=== PATIENT | male | born 1985 | race African-American/Black ===

== ENCOUNTER 2021-01-15 20:59 | Inpatient (IN) ==
[2021-01-16] MEDS ORDERED: SODIUM CHLORIDE 0.9% 1,000 ML IV STA (00:08)
[2021-01-16 00:26] LABS: Albumin 2.9 G/DL (3.4-5.0); Calcium 9.1 MG/DL (8.5-10.1); Osmolality,Calculated 259.7 MOS/KG (273-304); Potassium 4.4 MMOL/L (3.5-5.1); Total Protein 9.4 G/DL (6.4-8.2)
[2021-01-16 00:49] LABS: Basophils % 0.4 % (0.0-0.8); Eosinophils # 0.4 10*3/uL (0.0-0.87); Eosinophils % 3.9 % (0.00-10.9); Hematocrit 35.9 VOL% (42.0-52.0); Hemoglobin 11.7 GM/DL (14.0-18.0); Immature Granulocytes % 0.5 %; Immature Granulocytes Absolute 0.05 #; Lymphocytes # 1.8 10*3/uL (1.4-4.0); Lymphocytes % 17.5 % (21.2-54.2); Mean Corpuscular HGB Conc 32.6 GM/DL (32-36); Mean Platelet Volume 9.5 FL (9.6-12.0); Monocytes % 10.8 % (1.7-12.7); Neutrophils % 66.9 % (38.7-73.9); Platelet Count 310 T/CUMM (130-400); Red Blood Count 3.74 MC/CUMM (3.8-5.5); White Blood Count 10.3 T/CUMM (4-12)
[2021-01-16 00:51] LABS: Bacteria,Urine Occasional /HPF (Few); Bilirubin,Urine Negative (Negative); Blood, Urine Small mg/dL (Negative); Glucose,Urine (UA) Negative (Negative); Ketones,Urine 20 mg/dL (Negative); Mucus,Urine Many /LPF (Occasional); Nitrite,Urine Negative (Negative); Protein,Urine 100 MG/DL; RBC,Urine 4 /HPF (0-4); Urine Appearance Slightly Hazy (Clear); Urine Color Amber (Yellow); Urine Specific Gravity 1.034 (1.001-1.035); Urine Urobilinogen < 2.0 EU/DL (0.2-1.0)
[2021-01-16] MEDS ORDERED: GLUCAGON 1 MG VIAL IM PRN (03:39)
[2021-01-16] MEDS ORDERED: DEXTROSE 50% 25 GM/50 ML VIAL IV PRN (03:39)
[2021-01-16] MEDS ORDERED: ONDANSETRON 4 MG/2 ML VIAL IV PRN (03:39)
[2021-01-16 06:46] LABS: PT Patient Result 11.7 SECS (10.5-12.0)
[2021-01-16] MEDS ORDERED: EMTRICITABINE TENOFOVIR ALAFEN PO SCH (09:00)
[2021-01-16 14:16] LABS: RBC,Peritoneal Fluid 7917 T/CUMM
[2021-01-16] MEDS ORDERED: METOPROLOL TARTRATE 5 MG/5 ML VIAL IV ONE (15:58)
[2021-01-16] MEDS: ACETAMINOPHEN 325 MG TABLET PO PRN (16:12)
[2021-01-17 05:29] LABS: AFP Tumor < 2.2 NG/ML (0-8); Cancer Antigen 19-9 1.84 U/ML (0-35); Carcinoembryonic Antigen < 0.50 NG/ML (0.0-5.0)
[2021-01-17] MEDS: cefTRIAXone 1,000 MG in SODIUM CHLORIDE 0.9% 100 ML IV SCH (12:55)
[2021-01-17] MEDS ORDERED: ALBUMIN 25% 50 GM/200 ML VIAL IV ONE ×2 (14:03→14:07)
[2021-01-18 06:09] LABS: Basophils % 0.3 % (0.0-0.8); Eosinophils # 0.4 10*3/uL (0.0-0.87); Eosinophils % 6.4 % (0.00-10.9); Hematocrit 33.1 VOL% (42.0-52.0); Immature Granulocytes % 0.5 %; Immature Granulocytes Absolute 0.03 #; Lymphocytes % 15.6 % (21.2-54.2); Mean Corpuscular HGB Conc 33.2 GM/DL (32-36); Mean Corpuscular Volume 95.9 FL (87-102); Mean Platelet Volume 8.6 FL (9.6-12.0); Monocytes % 11.9 % (1.7-12.7); Neutrophils % 65.3 % (38.7-73.9); Platelet Count 290 T/CUMM (130-400); Red Blood Count 3.45 MC/CUMM (3.8-5.5); Red Cell Distribution Width 11.9 % (9.3-17.3); White Blood Count 6.3 T/CUMM (4-12)
[2021-01-18 06:28] LABS: Calcium 8.7 MG/DL (8.5-10.1); Osmolality,Calculated 263.4 MOS/KG (273-304); Potassium 3.8 MMOL/L (3.5-5.1)
[2021-01-18] MEDS: BISACODYL 5 MG TABLET PO SCH ×2 (11:00→16:05)
[2021-01-18] MEDS: cefTRIAXone 1,000 MG in SODIUM CHLORIDE 0.9% 100 ML IV SCH (11:45)
[2021-01-18 16:15] LABS: % CD4 (T Cells) 20 % (32-64); % CD8 (T Cells) 36 % (15-40); 4/8 Ratio 0.6 (>=0.9)
[2021-01-18] MEDS ORDERED: POLYETHYLENE GLYCOL POWDER 255 GM BOTTLE PO ONE (18:00)
[2021-01-18] MEDS ORDERED: MAGNESIUM CITRATE 300 ML BOTTLE PO ONE (21:00)
[2021-01-19] MEDS: BISACODYL 5 MG TABLET PO SCH (00:04)
[2021-01-19 06:26] LABS: Basophils % 0.7 % (0.0-0.8); Eosinophils # 0.4 10*3/uL (0.0-0.87); Eosinophils % 7.5 % (0.00-10.9); Hematocrit 36.8 VOL% (42.0-52.0); Immature Granulocytes % 0.2 %; Immature Granulocytes Absolute 0.01 #; Lymphocytes % 16.6 % (21.2-54.2); Mean Corpuscular HGB Conc 32.6 GM/DL (32-36); Mean Corpuscular Volume 97.1 FL (87-102); Mean Platelet Volume 8.9 FL (9.6-12.0); Monocytes % 11.5 % (1.7-12.7); Neutrophils % 63.5 % (38.7-73.9); Platelet Count 341 T/CUMM (130-400); Red Blood Count 3.79 MC/CUMM (3.8-5.5); Red Cell Distribution Width 11.9 % (9.3-17.3); White Blood Count 5.9 T/CUMM (4-12)
[2021-01-19 06:50] LABS: Calcium 9.1 MG/DL (8.5-10.1); Osmolality,Calculated 259.5 MOS/KG (273-304); Potassium 3.9 MMOL/L (3.5-5.1)
[2021-01-19] MEDS: cefTRIAXone 1,000 MG in SODIUM CHLORIDE 0.9% 100 ML IV SCH (12:20)
[2021-01-19] MEDS ORDERED: POTASSIUM CHLORIDE 20 MEQ TABLET PO PRN (13:26)
[2021-01-19] MEDS: LACTATED RINGERS 1,000 ML IV SCH (13:35)
[2021-01-19] MEDS ORDERED: LIDOCAINE 2% 5 ML VIAL ONE (15:31)
[2021-01-19] MEDS ORDERED: propofoL 200 MG/20 ML VIAL IV ONE ×2 (15:31→17:30)
[2021-01-20 04:20] LABS: Basophils % 0.6 % (0.0-0.8); Eosinophils # 0.4 10*3/uL (0.0-0.87); Eosinophils % 6.4 % (0.00-10.9); Hematocrit 37.1 VOL% (42.0-52.0); Hemoglobin 11.9 GM/DL (14.0-18.0); Immature Granulocytes % 0.3 %; Immature Granulocytes Absolute 0.02 #; Lymphocytes # 1.1 10*3/uL (1.4-4.0); Lymphocytes % 17.2 % (21.2-54.2); Mean Corpuscular HGB Conc 32.1 GM/DL (32-36); Mean Corpuscular Volume 95.9 FL (87-102); Mean Platelet Volume 8.8 FL (9.6-12.0); Neutrophils % 65.5 % (38.7-73.9); Platelet Count 330 T/CUMM (130-400); Red Blood Count 3.87 MC/CUMM (3.8-5.5); Red Cell Distribution Width 11.7 % (9.3-17.3); White Blood Count 6.4 T/CUMM (4-12)
[2021-01-20 04:32] LABS: Uric Acid 7.2 MG/DL (3.5-7.2)
[2021-01-20 04:35] LABS: Albumin 2.6 G/DL (3.4-5.0); Bilirubin,Total 1.2 MG/DL (0.20-1.00); Calcium 8.9 MG/DL (8.5-10.1); Osmolality,Calculated 265.4 MOS/KG (273-304); Total Protein 8.4 G/DL (6.4-8.2)
[2021-01-20] MEDS: LACTATED RINGERS 1,000 ML IV SCH (08:27)
[2021-01-20] MEDS ORDERED: RASBURICASE 7.5 MG in SODIUM CHLORIDE 0.9% 50 ML IV ONE (09:02)
[2021-01-20] MEDS: allopurinoL 300 MG TABLET PO SCH (09:49)
[2021-01-20] MEDS: cefTRIAXone 1,000 MG in SODIUM CHLORIDE 0.9% 100 ML IV SCH (12:17)
[2021-01-20 13:39] LABS: Syphilis Total Antibody w/Rflx Reactive
[2021-01-21 06:21] LABS: Basophils # 0.1 10*3/uL (0.0-0.2); Basophils % 0.5 % (0.0-0.8); Eosinophils # 0.4 10*3/uL (0.0-0.87); Eosinophils % 4.3 % (0.00-10.9); Hematocrit 32.9 VOL% (42.0-52.0); Hemoglobin 10.6 GM/DL (14.0-18.0); Immature Granulocytes % 0.5 %; Immature Granulocytes Absolute 0.05 #; Lymphocytes # 1.2 10*3/uL (1.4-4.0); Lymphocytes % 12.6 % (21.2-54.2); Mean Corpuscular HGB Conc 32.2 GM/DL (32-36); Mean Corpuscular Volume 96.8 FL (87-102); Mean Platelet Volume 8.8 FL (9.6-12.0); Monocytes % 10.1 % (1.7-12.7); Platelet Count 395 T/CUMM (130-400); Red Cell Distribution Width 12.7 % (9.3-17.3); White Blood Count 9.8 T/CUMM (4-12)
[2021-01-21 06:46] LABS: Calcium 8.9 MG/DL (8.5-10.1); Osmolality,Calculated 267.1 MOS/KG (273-304); Potassium 4.2 MMOL/L (3.5-5.1)
[2021-01-21] MEDS: LACTATED RINGERS 1,000 ML IV SCH (08:51)
[2021-01-21] MEDS: allopurinoL 300 MG TABLET PO SCH (09:23)
[2021-01-21] MEDS ORDERED: MIDAZOLAM 2 MG/2 ML VIAL ONE (11:25)
[2021-01-21] MEDS ORDERED: fentaNYL 100 MCG/2 ML VIAL ONE (11:25)
[2021-01-21] MEDS ORDERED: propofoL 200 MG/20 ML VIAL IV ONE (11:25)
[2021-01-21] MEDS ORDERED: LIDOCAINE 2% 5 ML VIAL ONE (11:25)
[2021-01-21] MEDS ORDERED: SEVOFLURANE 1 UNIT/15 MINUTE INH ONE (11:25)
[2021-01-21] MEDS ORDERED: HEPARIN 5,000 UNIT/1 ML VIAL ONE (11:31)
[2021-01-21] MEDS ORDERED: BUPIVACAINE MPF 0.25% 30 ML VIAL ONE (11:31)
[2021-01-21] MEDS ORDERED: LIDOCAINE 1%/EPI INJ 20 ML VIAL ONE (11:31)
[2021-01-21] MEDS ORDERED: LEVALBUTEROL 1.25 MG/3 ML NEB RESP TX ONE (11:34)
[2021-01-21] MEDS ORDERED: METOPROLOL TARTRATE 5 MG/5 ML VIAL IV ONE (11:34)
[2021-01-21] MEDS ORDERED: MORPHINE 2 MG/1 ML SYRINGE IV ONE (11:39)
[2021-01-21 12:47] LABS: ABG Base Excess -0.3 MMOL/L (-2.5-2.5); ABG HCO3 24.2 MMOL/L (20-26); ABG Oxygen Saturation 99.1 % (95-100); ABG PCO2 35.3 MM HG (35-48); ABG PH 7.433 (7.35-7.45); ABG TCO2 21.3 MMOL/L (23-27)
[2021-01-21] MEDS: cefTRIAXone 1,000 MG in SODIUM CHLORIDE 0.9% 100 ML IV SCH (13:08)
[2021-01-22] MEDS ORDERED: HEPARIN 5,000 UNIT/1 ML VIAL ONE (07:43)
[2021-01-22] MEDS ORDERED: BUPIVACAINE MPF 0.25% 30 ML VIAL ONE (07:43)
[2021-01-22] MEDS ORDERED: TISSUE ADHESIVE 1 EACH APPLICATOR TOP ONE ×2 (07:43→09:49)
[2021-01-22] MEDS ORDERED: LIDOCAINE 1%/EPI INJ 20 ML VIAL ONE (07:43)
[2021-01-22] MEDS ORDERED: LACTATED RINGERS 1,000 ML IV SCH (08:30)
[2021-01-22] MEDS ORDERED: fentaNYL 100 MCG/2 ML VIAL ONE (08:33)
[2021-01-22] MEDS ORDERED: MIDAZOLAM 2 MG/2 ML VIAL ONE (08:36)
[2021-01-22] MEDS ORDERED: ONDANSETRON 4 MG/2 ML VIAL ONE (08:46)
[2021-01-22] MEDS ORDERED: ceFAZolin 1,000 MG VIAL ONE (08:57)
[2021-01-22] MEDS: allopurinoL 300 MG TABLET PO SCH (09:30)
[2021-01-22] MEDS ORDERED: SEVOFLURANE 1 UNIT/15 MINUTE INH ONE (10:51)
[2021-01-22] MEDS: MORPHINE 2 MG/1 ML SYRINGE IV PRN ×2 (11:23→15:01)
[2021-01-22] MEDS: cefTRIAXone 1,000 MG in SODIUM CHLORIDE 0.9% 100 ML IV SCH (11:27)
[2021-01-23 04:30] LABS: Osmolality,Calculated 266.4 MOS/KG (273-304); Potassium 4.5 MMOL/L (3.5-5.1)
[2021-01-23 04:32] LABS: Basophils # 0.1 10*3/uL (0.0-0.2); Basophils % 0.2 % (0.0-0.8); Eosinophils # 0.4 10*3/uL (0.0-0.87); Eosinophils % 2.2 % (0.00-10.9); Hematocrit 21.1 VOL% (42.0-52.0); Immature Granulocytes % 1.3 %; Immature Granulocytes Absolute 0.26 #; Lymphocytes # 3.6 10*3/uL (1.4-4.0); Lymphocytes % 17.9 % (21.2-54.2); Mean Corpuscular HGB Conc 31.3 GM/DL (32-36); Mean Corpuscular Volume 102.4 FL (87-102); Mean Platelet Volume 8.5 FL (9.6-12.0); Monocytes % 11.4 % (1.7-12.7); NRBC # 0.19 10*3/uL; Platelet Count 410 T/CUMM (130-400); Red Cell Distribution Width 13.9 % (9.3-17.3)
[2021-01-23 04:35] LABS: Hemoglobin 6.6 GM/DL (14.0-18.0); Red Blood Count 2.06 MC/CUMM (3.8-5.5); White Blood Count 20.3 T/CUMM (4-12)
[2021-01-23 05:05] LABS: Eosinophils 1 % (0-10); Hypochromasia 2+; Lymphocytes 10 % (20-55); Platelet Estimate Increased; Segmented Neutrophils 83 % (50-85); Total Cells Counted 100
[2021-01-23] MEDS: ACETAMINOPHEN 325 MG TABLET PO PRN (06:15)
[2021-01-23 06:27] LABS: Basophils # 0.1 10*3/uL (0.0-0.2); Basophils % 0.3 % (0.0-0.8); Eosinophils # 0.4 10*3/uL (0.0-0.87); Eosinophils % 1.7 % (0.00-10.9); Hematocrit 19.6 VOL% (42.0-52.0); Immature Granulocytes % 1.4 %; Immature Granulocytes Absolute 0.28 #; Lymphocytes # 3.2 10*3/uL (1.4-4.0); Lymphocytes % 15.8 % (21.2-54.2); Mean Corpuscular HGB Conc 31.6 GM/DL (32-36); Mean Corpuscular Volume 101.6 FL (87-102); Mean Platelet Volume 8.6 FL (9.6-12.0); Monocytes % 10.9 % (1.7-12.7); Neutrophils % 69.9 % (38.7-73.9); Platelet Count 415 T/CUMM (130-400); Red Blood Count 1.93 MC/CUMM (3.8-5.5); Red Cell Distribution Width 13.9 % (9.3-17.3); White Blood Count 20.1 T/CUMM (4-12)
[2021-01-23 06:31] LABS: Hemoglobin 6.2 GM/DL (14.0-18.0)
[2021-01-23] MEDS ORDERED: SODIUM CHLORIDE 0.9% 1,000 ML IV PRN (06:39)
[2021-01-23 06:56] LABS: Eosinophils 1 % (0-10); Lymphocytes 14 % (20-55); Nucleated Red Blood Cells 1 (0-5); Platelet Estimate Increased; Segmented Neutrophils 79 % (50-85); Total Cells Counted 100
[2021-01-23 06:57] LABS: Hypochromasia 3+; Microcytosis 1+
[2021-01-23 07:01] LABS: Basophils # 0.1 10*3/uL (0.0-0.2); Basophils % 0.3 % (0.0-0.8); Eosinophils # 0.4 10*3/uL (0.0-0.87); Eosinophils % 1.7 % (0.00-10.9); Hematocrit 19.6 VOL% (42.0-52.0); Immature Granulocytes % 1.4 %; Immature Granulocytes Absolute 0.28 #; Lymphocytes # 3.2 10*3/uL (1.4-4.0); Lymphocytes % 15.8 % (21.2-54.2); Mean Corpuscular HGB Conc 31.6 GM/DL (32-36); Mean Corpuscular Volume 101.6 FL (87-102); Mean Platelet Volume 8.6 FL (9.6-12.0); Monocytes % 10.9 % (1.7-12.7); Neutrophils % 69.9 % (38.7-73.9); Platelet Count 415 T/CUMM (130-400); Red Blood Count 1.93 MC/CUMM (3.8-5.5); Red Cell Distribution Width 13.9 % (9.3-17.3); White Blood Count 20.1 T/CUMM (4-12)
[2021-01-23 07:02] LABS: Hemoglobin 6.2 GM/DL (14.0-18.0)
[2021-01-23 07:19] LABS: Folate 3.53 NG/ML (5.38-24.0); Vitamin B12 332 PG/ML (211-911)
[2021-01-23 08:10] LABS: Sedimentation Rate-Westergren 53 MM/HR (0-15)
[2021-01-23 09:25] LABS: Hemoglobin A1 (Alkaline) 97.1 % (96.5-98.5); Hemoglobin A2 (Alkaline) 2.9 % (1.5-3.5)
[2021-01-23] MEDS: PIPERACILLIN/TAZOBACTAM 3,375 MG in SODIUM CHLORIDE 0.9% 100 ML IV SCH ×2 (09:46→21:04)
[2021-01-23] MEDS: allopurinoL 300 MG TABLET PO SCH (09:51)
[2021-01-23 10:04] LABS: Basophils # 0.1 10*3/uL (0.0-0.2); Basophils % 0.3 % (0.0-0.8); Eosinophils # 0.4 10*3/uL (0.0-0.87); Eosinophils % 1.8 % (0.00-10.9); Immature Granulocytes % 1.7 %; Immature Granulocytes Absolute 0.35 #; Lymphocytes % 14.6 % (21.2-54.2); Mean Corpuscular HGB Conc 31.5 GM/DL (32-36); Mean Platelet Volume 8.6 FL (9.6-12.0); Monocytes % 12.2 % (1.7-12.7); NRBC # 0.26 10*3/uL; Neutrophils % 69.4 % (38.7-73.9); Platelet Count 457 T/CUMM (130-400); Red Blood Count 1.96 MC/CUMM (3.8-5.5); Red Cell Distribution Width 14.3 % (9.3-17.3); White Blood Count 20.3 T/CUMM (4-12)
[2021-01-23 10:11] LABS: Hemoglobin 6.3 GM/DL (14.0-18.0)
[2021-01-23] MEDS: FOLIC ACID 1 MG TABLET PO SCH ×2 (13:34→21:04)
[2021-01-23 17:04] LABS: Hematocrit 25.3 VOL% (42.0-52.0); Hemoglobin 8.3 GM/DL (14.0-18.0)
[2021-01-24] MEDS: PIPERACILLIN/TAZOBACTAM 3,375 MG in SODIUM CHLORIDE 0.9% 100 ML IV SCH (04:35)
[2021-01-24 05:45] LABS: Basophils # 0.1 10*3/uL (0.0-0.2); Basophils % 0.4 % (0.0-0.8); Eosinophils # 0.7 10*3/uL (0.0-0.87); Eosinophils % 3.5 % (0.00-10.9); Hematocrit 26.2 VOL% (42.0-52.0); Hemoglobin 8.3 GM/DL (14.0-18.0); Immature Granulocytes % 2.7 %; Immature Granulocytes Absolute 0.56 #; Lymphocytes # 2.3 10*3/uL (1.4-4.0); Lymphocytes % 10.9 % (21.2-54.2); Mean Corpuscular HGB Conc 31.7 GM/DL (32-36); Mean Corpuscular Volume 99.2 FL (87-102); Monocytes % 12.3 % (1.7-12.7); NRBC # 0.79 10*3/uL; Neutrophils % 70.2 % (38.7-73.9); Platelet Count 441 T/CUMM (130-400); Red Blood Count 2.64 MC/CUMM (3.8-5.5); Red Cell Distribution Width 17.4 % (9.3-17.3); White Blood Count 21.1 T/CUMM (4-12)
[2021-01-24 06:04] LABS: Calcium 8.5 MG/DL (8.5-10.1); Osmolality,Calculated 268.2 MOS/KG (273-304); Potassium 4.1 MMOL/L (3.5-5.1)
[2021-01-24 06:22] LABS: Anisocytosis 1+; Eosinophils 4 % (0-10); Hypochromasia 1+; Lymphocytes 11 % (20-55); Microcytosis 1+; Nucleated Red Blood Cells 4 (0-5); Segmented Neutrophils 71 % (50-85); Total Cells Counted 100
[2021-01-24 06:23] LABS: Platelet Estimate Increased; Polychromasia Slight
[2021-01-24] MEDS ORDERED: DEXAMETHASONE INJ 20 MG in SODIUM CHLORIDE 0.9% 50 ML IV ONE (08:15)
[2021-01-24] MEDS ORDERED: diphenhydrAMINE 50 MG/1 ML VIAL IV ONE (08:30)
[2021-01-24] MEDS ORDERED: ACETAMINOPHEN 500 MG TABLET PO ONE (08:30)
[2021-01-24] MEDS ORDERED: FAMOTIDINE 20 MG/2 ML VIAL IV ONE (08:30)
[2021-01-24] MEDS ORDERED: PALONOSETRON 0.25 MG/5 ML VIAL IV ONE (08:30)
[2021-01-24] MEDS ORDERED: predniSONE 50 MG TABLET PO SCH (09:00)
[2021-01-24] MEDS ORDERED: FOSAPREPITANT 150 MG in SODIUM CHLORIDE 0.9% 100 ML IV ONE (09:00)
[2021-01-24] MEDS: FOLIC ACID 1 MG TABLET PO SCH ×2 (09:05→20:06)
[2021-01-24] MEDS: allopurinoL 300 MG TABLET PO SCH (09:05)
[2021-01-24] MEDS ORDERED: DOXORUBICIN LIPOSOMAL IV ONE (10:00)
[2021-01-24] MEDS ORDERED: SODIUM CHLORIDE 0.9% IV ONE ×3 (10:00→11:00)
[2021-01-24] MEDS ORDERED: RITUXIMAB ABBS IV ONE ×2 (10:00→11:00)
[2021-01-24] MEDS ORDERED: CYCLOPHOSPHAMIDE IV ONE (10:00)
[2021-01-24] MEDS ORDERED: DEXTROSE 5% IV ONE (10:00)
[2021-01-24] MEDS ORDERED: vinCRIStine 2 MG in SYRINGE 1 EACH IV ONE (11:00)
[2021-01-24] MEDS ORDERED: DOXORUBICIN IV ONE (11:00)
[2021-01-24] MEDS ORDERED: ERTAPENEM 1,000 MG in SODIUM CHLORIDE 0.9% 100 ML IV SCH (21:00)
[2021-01-25 06:15] LABS: Basophils % 0.1 % (0.0-0.8); Hematocrit 22.5 VOL% (42.0-52.0); Hemoglobin 7.2 GM/DL (14.0-18.0); Immature Granulocytes % 3.6 %; Immature Granulocytes Absolute 0.79 #; Lymphocytes # 1.6 10*3/uL (1.4-4.0); Mean Corpuscular Volume 102.3 FL (87-102); Mean Platelet Volume 8.9 FL (9.6-12.0); Monocytes % 6.6 % (1.7-12.7); NRBC # 0.24 10*3/uL; Neutrophils % 82.7 % (38.7-73.9); Platelet Count 512 T/CUMM (130-400); Red Cell Distribution Width 18.9 % (9.3-17.3); White Blood Count 22.2 T/CUMM (4-12)
[2021-01-25 06:48] LABS: Band Neutrophils 3 % (0-10); Hypochromasia 1+; Lymphocytes 12 % (20-55); Segmented Neutrophils 79 % (50-85); Total Cells Counted 100
[2021-01-25 06:49] LABS: Anisocytosis 1+; Macrocytosis 1+; Platelet Estimate Increased; Polychromasia Slight; Target Cells Slight
[2021-01-25] MEDS ORDERED: SODIUM CHLORIDE 0.9% 1,000 ML IV PRN (08:22)
[2021-01-25] MEDS ORDERED: FILGRASTIM-SNDZ 480 MCG/0.8 ML SYRINGE SUBCUT SCH (09:00)
[2021-01-25] MEDS: allopurinoL 300 MG TABLET PO SCH (09:29)
[2021-01-25] MEDS: FOLIC ACID 1 MG TABLET PO SCH (09:30)
[2021-01-25 13:47] LABS: Hematocrit 24.9 VOL% (42.0-52.0)
[2021-01-25] MEDS ORDERED: HEPARIN LOCK FLUSH 500 UNIT/5 ML SYRINGE IV ONE (13:55)
[2021-01-25 14:20] VITALS: BP 131/72
[2021-01-25] MEDS ORDERED: predniSONE 50 MG TABLET PO SCH (17:00)
== END 2021-01-25 15:15 | disposition home or self-care (01) | DRG 969 ==
LOC: N.ED 20:59 → N.EDINP 01-16 03:39 → SUATTDRO 01-16 03:39 → N.2W 01-16 04:08
PROVIDERS: ADMIT Internal Medicine; ATTEND Internal Medicine
PROC: COLONBX (2021-01-19 08:05)

== ENCOUNTER 2021-03-30 07:41 | Inpatient (IN) ==
[2021-03-30 14:04] LABS: Basophils % 0.6 % (0.0-0.8); Eosinophils % 0.3 % (0.00-10.9); Hematocrit 38.7 VOL% (42.0-52.0); Hemoglobin 12.6 GM/DL (14.0-18.0); Immature Granulocytes % 0.3 %; Immature Granulocytes Absolute 0.01 #; Lymphocytes # 1.1 10*3/uL (1.4-4.0); Lymphocytes % 31.6 % (21.2-54.2); Mean Corpuscular HGB Conc 32.6 GM/DL (32-36); Mean Platelet Volume 8.9 FL (9.6-12.0); Monocytes % 14.8 % (1.7-12.7); Neutrophils % 52.4 % (38.7-73.9); Platelet Count 220 T/CUMM (130-400); Red Blood Count 3.87 MC/CUMM (3.8-5.5); Red Cell Distribution Width 16.4 % (9.3-17.3); White Blood Count 3.5 T/CUMM (4-12)
[2021-03-30 14:23] LABS: Albumin 3.8 G/DL (3.4-5.0); Bilirubin,Total 0.6 MG/DL (0.20-1.00); Calcium 9.2 MG/DL (8.5-10.1); Osmolality,Calculated 272.7 MOS/KG (273-304); Potassium 3.6 MMOL/L (3.5-5.1); Total Protein 8.2 G/DL (6.4-8.2); Uric Acid 3.5 MG/DL (3.5-7.2)
[2021-03-30] MEDS ORDERED: chlorproMAZINE 25 MG TABLET PO PRN (16:36)
[2021-03-30] MEDS ORDERED: MAGNESIUM HYDROXIDE SUSP 30 ML UDCUP PO PRN (16:36)
[2021-03-30] MEDS ORDERED: MYLANTA/LIDO VISC 2:1 300 ML BOTTLE SWISH/SPIT PRN (16:36)
[2021-03-30] MEDS ORDERED: TEMAZEPAM 7.5 MG CAPSULE PO PRN (16:36)
[2021-03-30] MEDS ORDERED: ACETAMINOPHEN 325 MG TABLET PO PRN (16:36)
[2021-03-30] MEDS ORDERED: traMADol 50 MG TABLET PO PRN (16:36)
[2021-03-30] MEDS ORDERED: LOPERAMIDE 2 MG CAPSULE PO PRN ×2 (16:36)
[2021-03-30] MEDS ORDERED: chlorproMAZINE INJ 25 MG in SODIUM CHLORIDE 0.9% 100 ML IV PRN (16:36)
[2021-03-30] MEDS ORDERED: ALUMINUM/MAGNES/SIMETH MAX STR 30 ML UDCUP PO PRN (16:36)
[2021-03-30] MEDS ORDERED: guaiFENesin 200 MG/10 ML UDCUP PO PRN (16:36)
[2021-03-30] MEDS ORDERED: chlorproMAZINE INJ 50 MG in SODIUM CHLORIDE 0.9% 100 ML IV PRN (16:36)
[2021-03-30] MEDS ORDERED: PROMETHAZINE INJ 25 MG in SODIUM CHLORIDE 0.9% 50 ML IV PRN (16:36)
[2021-03-30] MEDS ORDERED: diphenhydrAMINE CAP 25 MG CAPSULE PO PRN (16:36)
[2021-03-30] MEDS ORDERED: LACTULOSE 20 GM/30 ML UDCUP PO PRN (16:36)
[2021-03-30] MEDS ORDERED: ONDANSETRON 4 MG/2 ML VIAL IV PRN (16:36)
[2021-03-30] MEDS ORDERED: MYLANTA/LIDO VISC 2:1 300 ML BOTTLE SWISH/SWAL PRN (16:36)
[2021-03-30 17:27] LABS: Albumin 3.4 G/DL (3.4-5.0); Bilirubin,Total 0.5 MG/DL (0.20-1.00); Calcium 8.8 MG/DL (8.5-10.1); Osmolality,Calculated 275.7 MOS/KG (273-304); Potassium 3.5 MMOL/L (3.5-5.1); Total Protein 7.5 G/DL (6.4-8.2); Uric Acid 3.8 MG/DL (3.5-7.2)
[2021-03-30] MEDS: ENOXAPARIN 40 MG/0.4 ML SYRINGE SUBCUT SCH (20:54)
[2021-03-31 07:01] LABS: Basophils % 1.3 % (0.0-0.8); Eosinophils % 0.6 % (0.00-10.9); Hematocrit 39.5 VOL% (42.0-52.0); Hemoglobin 13.1 GM/DL (14.0-18.0); Immature Granulocytes % 0.3 %; Immature Granulocytes Absolute 0.01 #; Lymphocytes # 0.9 10*3/uL (1.4-4.0); Lymphocytes % 27.9 % (21.2-54.2); Mean Corpuscular HGB Conc 33.2 GM/DL (32-36); Mean Corpuscular Volume 99.2 FL (87-102); Mean Platelet Volume 9.5 FL (9.6-12.0); Monocytes % 18.9 % (1.7-12.7); Platelet Count 218 T/CUMM (130-400); Red Blood Count 3.98 MC/CUMM (3.8-5.5); Red Cell Distribution Width 16.3 % (9.3-17.3); White Blood Count 3.1 T/CUMM (4-12)
[2021-03-31 07:22] LABS: Lymphocytes 38 % (20-55); Platelet Estimate Adequate; Segmented Neutrophils 42 % (50-85); Total Cells Counted 100
[2021-03-31] MEDS ORDERED: FOSAPREPITANT 150 MG in SODIUM CHLORIDE 0.9% 100 ML IV ONE (07:30)
[2021-03-31] MEDS ORDERED: DEXAMETHASONE 10 MG/1 ML VIAL IV ONE (07:30)
[2021-03-31] MEDS ORDERED: PALONOSETRON 0.25 MG/5 ML VIAL IV SCH (07:30)
[2021-03-31 07:33] LABS: Albumin 3.3 G/DL (3.4-5.0); Calcium 8.9 MG/DL (8.5-10.1); Osmolality,Calculated 274.5 MOS/KG (273-304); Potassium 4.4 MMOL/L (3.5-5.1); Total Protein 7.5 G/DL (6.4-8.2)
[2021-03-31] MEDS: predniSONE 50 MG TABLET PO SCH ×2 (08:14→20:15)
[2021-03-31] MEDS: allopurinoL 300 MG TABLET PO SCH (08:57)
[2021-03-31] MEDS: FOLIC ACID 1 MG TABLET PO SCH (08:57)
[2021-03-31] MEDS: PANTOPRAZOLE 40 MG TABLET PO SCH (08:57)
[2021-03-31] MEDS ORDERED: TIVICAY PO SCH (09:00)
[2021-03-31] MEDS ORDERED: DOXORUBICIN IV ONE (10:00)
[2021-03-31] MEDS ORDERED: ETOPOSIDE IV ONE (10:00)
[2021-03-31] MEDS ORDERED: SODIUM CHLORIDE 0.9% IV ONE (10:00)
[2021-03-31] MEDS ORDERED: VINCRISTINE IV ONE (10:00)
[2021-03-31] MEDS: DESCOVY PO SCH (11:16)
[2021-03-31] MEDS: ENOXAPARIN 40 MG/0.4 ML SYRINGE SUBCUT SCH (20:16)
[2021-04-01 05:04] LABS: Basophils % 0.1 % (0.0-0.8); Hematocrit 37.5 VOL% (42.0-52.0); Hemoglobin 12.5 GM/DL (14.0-18.0); Immature Granulocytes % 0.4 %; Immature Granulocytes Absolute 0.04 #; Lymphocytes # 0.8 10*3/uL (1.4-4.0); Lymphocytes % 8.2 % (21.2-54.2); Mean Corpuscular HGB Conc 33.3 GM/DL (32-36); Mean Corpuscular Volume 99.2 FL (87-102); Mean Platelet Volume 9.5 FL (9.6-12.0); Monocytes % 1.2 % (1.7-12.7); Neutrophils % 90.1 % (38.7-73.9); Platelet Count 220 T/CUMM (130-400); Red Blood Count 3.78 MC/CUMM (3.8-5.5); Red Cell Distribution Width 15.9 % (9.3-17.3); White Blood Count 9.1 T/CUMM (4-12)
[2021-04-01 05:27] LABS: Albumin 3.4 G/DL (3.4-5.0); Bilirubin,Total 1.7 MG/DL (0.20-1.00); Calcium 9.1 MG/DL (8.5-10.1); Osmolality,Calculated 276.7 MOS/KG (273-304); Potassium 4.4 MMOL/L (3.5-5.1); Total Protein 7.7 G/DL (6.4-8.2)
[2021-04-01] MEDS: DESCOVY PO SCH (10:10)
[2021-04-01] MEDS: TIVICAY PO SCH (10:10)
[2021-04-01] MEDS: predniSONE 50 MG TABLET PO SCH ×2 (10:11→20:30)
[2021-04-01] MEDS: PANTOPRAZOLE 40 MG TABLET PO SCH (10:11)
[2021-04-01] MEDS: FOLIC ACID 1 MG TABLET PO SCH (10:11)
[2021-04-01] MEDS: allopurinoL 300 MG TABLET PO SCH (10:11)
[2021-04-01] MEDS: SULFAMETHOX/TRIMETHOPRIM 800-160 MG TABLET PO SCH (10:12)
[2021-04-01] MEDS ORDERED: RITUXIMAB ABBS IV ONE (13:00)
[2021-04-01] MEDS ORDERED: DEXAMETHASONE 10 MG/1 ML VIAL IV ONE (13:00)
[2021-04-01] MEDS ORDERED: SODIUM CHLORIDE 0.9% IV ONE ×2 (13:00→13:30)
[2021-04-01] MEDS ORDERED: PALONOSETRON 0.25 MG/5 ML VIAL IV ONE (13:00)
[2021-04-01] MEDS ORDERED: ETOPOSIDE IV ONE (13:30)
[2021-04-01] MEDS ORDERED: DOXORUBICIN IV ONE (13:30)
[2021-04-01] MEDS ORDERED: VINCRISTINE IV ONE (13:30)
[2021-04-01] MEDS: ENOXAPARIN 40 MG/0.4 ML SYRINGE SUBCUT SCH (20:30)
[2021-04-02 05:45] LABS: Basophils % 0.1 % (0.0-0.8); Hematocrit 35.2 VOL% (42.0-52.0); Hemoglobin 11.6 GM/DL (14.0-18.0); Immature Granulocytes % 1.1 %; Immature Granulocytes Absolute 0.13 #; Lymphocytes # 0.5 10*3/uL (1.4-4.0); Lymphocytes % 4.4 % (21.2-54.2); Mean Corpuscular Volume 99.7 FL (87-102); Mean Platelet Volume 9.3 FL (9.6-12.0); Monocytes % 2.4 % (1.7-12.7); Platelet Count 189 T/CUMM (130-400); Red Blood Count 3.53 MC/CUMM (3.8-5.5); Red Cell Distribution Width 15.8 % (9.3-17.3); White Blood Count 11.5 T/CUMM (4-12)
[2021-04-02 06:09] LABS: Albumin 3.1 G/DL (3.4-5.0); Bilirubin,Total 0.6 MG/DL (0.20-1.00); Calcium 8.9 MG/DL (8.5-10.1); Osmolality,Calculated 275.8 MOS/KG (273-304); Potassium 3.9 MMOL/L (3.5-5.1); Total Protein 7.1 G/DL (6.4-8.2)
[2021-04-02 06:20] LABS: Hypochromia 1+; Lymphocytes 7 % (20-55); Segmented Neutrophils 91 % (50-85); Total Cells Counted 100
[2021-04-02 06:21] LABS: Anisocytosis 1+; Macrocytosis 1+; Platelet Estimate Adequate
[2021-04-02] MEDS: TIVICAY PO SCH (10:55)
[2021-04-02] MEDS: DESCOVY PO SCH (10:55)
[2021-04-02] MEDS: SULFAMETHOX/TRIMETHOPRIM 800-160 MG TABLET PO SCH (10:57)
[2021-04-02] MEDS: PANTOPRAZOLE 40 MG TABLET PO SCH (10:58)
[2021-04-02] MEDS: predniSONE 50 MG TABLET PO SCH ×2 (10:58→20:29)
[2021-04-02] MEDS: FOLIC ACID 1 MG TABLET PO SCH (10:58)
[2021-04-02] MEDS: allopurinoL 300 MG TABLET PO SCH (10:58)
[2021-04-02] MEDS ORDERED: DEXAMETHASONE 10 MG/1 ML VIAL IV ONE (14:30)
[2021-04-02] MEDS ORDERED: PALONOSETRON 0.25 MG/5 ML VIAL IV ONE (14:30)
[2021-04-02] MEDS ORDERED: FOSAPREPITANT 150 MG in SODIUM CHLORIDE 0.9% 100 ML IV ONE (14:30)
[2021-04-02] MEDS ORDERED: SODIUM CHLORIDE 0.9% IV ONE (15:00)
[2021-04-02] MEDS ORDERED: ETOPOSIDE IV ONE (15:00)
[2021-04-02] MEDS ORDERED: DOXORUBICIN IV ONE (15:00)
[2021-04-02] MEDS ORDERED: VINCRISTINE IV ONE (15:00)
[2021-04-02] MEDS: ENOXAPARIN 40 MG/0.4 ML SYRINGE SUBCUT SCH (21:31)
[2021-04-03 04:05] LABS: Hematocrit 32.8 VOL% (42.0-52.0); Hemoglobin 10.8 GM/DL (14.0-18.0); Immature Granulocytes % 2.1 %; Immature Granulocytes Absolute 0.17 #; Lymphocytes # 0.4 10*3/uL (1.4-4.0); Lymphocytes % 4.2 % (21.2-54.2); Mean Corpuscular HGB Conc 32.9 GM/DL (32-36); Mean Corpuscular Volume 99.1 FL (87-102); Mean Platelet Volume 9.5 FL (9.6-12.0); Monocytes % 1.8 % (1.7-12.7); Neutrophils % 91.9 % (38.7-73.9); Platelet Count 169 T/CUMM (130-400); Red Blood Count 3.31 MC/CUMM (3.8-5.5); Red Cell Distribution Width 15.4 % (9.3-17.3); White Blood Count 8.3 T/CUMM (4-12)
[2021-04-03 04:25] LABS: Albumin 2.8 G/DL (3.4-5.0); Bilirubin,Total 0.7 MG/DL (0.20-1.00); Calcium 8.2 MG/DL (8.5-10.1); Osmolality,Calculated 281.4 MOS/KG (273-304); Potassium 3.6 MMOL/L (3.5-5.1); Total Protein 6.5 G/DL (6.4-8.2)
[2021-04-03 04:41] LABS: Hypochromia Slight; Lymphocytes 4 % (20-55); Segmented Neutrophils 94 % (50-85); Total Cells Counted 100
[2021-04-03 04:42] LABS: Macrocytosis Slight; Platelet Estimate Adequate
[2021-04-03] MEDS: predniSONE 50 MG TABLET PO SCH ×2 (09:03→21:03)
[2021-04-03] MEDS: allopurinoL 300 MG TABLET PO SCH (09:03)
[2021-04-03] MEDS: FOLIC ACID 1 MG TABLET PO SCH (09:03)
[2021-04-03] MEDS: SULFAMETHOX/TRIMETHOPRIM 800-160 MG TABLET PO SCH (09:04)
[2021-04-03] MEDS: PANTOPRAZOLE 40 MG TABLET PO SCH (09:04)
[2021-04-03] MEDS: DESCOVY PO SCH (09:05)
[2021-04-03] MEDS: TIVICAY PO SCH (09:05)
[2021-04-03] MEDS ORDERED: VINCRISTINE IV ONE (15:30)
[2021-04-03] MEDS ORDERED: SODIUM CHLORIDE 0.9% IV ONE (15:30)
[2021-04-03] MEDS ORDERED: DOXORUBICIN IV ONE (15:30)
[2021-04-03] MEDS ORDERED: ETOPOSIDE IV ONE (15:30)
[2021-04-03] MEDS ORDERED: DEXAMETHASONE 10 MG/1 ML VIAL IV ONE (15:30)
[2021-04-03] MEDS ORDERED: PALONOSETRON 0.25 MG/5 ML VIAL IV ONE (15:30)
[2021-04-03] MEDS: ENOXAPARIN 40 MG/0.4 ML SYRINGE SUBCUT SCH (21:04)
[2021-04-04 05:51] LABS: Basophils % 0.1 % (0.0-0.8); Hematocrit 32.6 VOL% (42.0-52.0); Immature Granulocytes % 7.3 %; Immature Granulocytes Absolute 0.55 #; Lymphocytes # 0.4 10*3/uL (1.4-4.0); Lymphocytes % 5.6 % (21.2-54.2); Mean Corpuscular HGB Conc 33.7 GM/DL (32-36); Mean Corpuscular Volume 97.6 FL (87-102); Mean Platelet Volume 10.4 FL (9.6-12.0); Monocytes % 2.6 % (1.7-12.7); Neutrophils % 84.4 % (38.7-73.9); Platelet Count 149 T/CUMM (130-400); Red Blood Count 3.34 MC/CUMM (3.8-5.5); Red Cell Distribution Width 14.6 % (9.3-17.3); White Blood Count 7.6 T/CUMM (4-12)
[2021-04-04 06:14] LABS: Lymphocytes 7 % (20-55); Platelet Estimate Normal; Segmented Neutrophils 90 % (50-85); Total Cells Counted 100
[2021-04-04 06:16] LABS: Albumin 2.6 G/DL (3.4-5.0); Calcium 8.3 MG/DL (8.5-10.1); Osmolality,Calculated 282.3 MOS/KG (273-304); Potassium 3.5 MMOL/L (3.5-5.1); Total Protein 6.3 G/DL (6.4-8.2)
[2021-04-04] MEDS: allopurinoL 300 MG TABLET PO SCH (08:37)
[2021-04-04] MEDS: PANTOPRAZOLE 40 MG TABLET PO SCH (08:38)
[2021-04-04] MEDS: FOLIC ACID 1 MG TABLET PO SCH (08:38)
[2021-04-04] MEDS: TIVICAY PO SCH (08:38)
[2021-04-04] MEDS: DESCOVY PO SCH (08:38)
[2021-04-04] MEDS: SULFAMETHOX/TRIMETHOPRIM 800-160 MG TABLET PO SCH (08:38)
[2021-04-04] MEDS ORDERED: DEXAMETHASONE 10 MG/1 ML VIAL IV ONE (10:00)
[2021-04-04] MEDS ORDERED: PALONOSETRON 0.25 MG/5 ML VIAL IV ONE (10:00)
[2021-04-04] MEDS ORDERED: CYCLOPHOSPHAMIDE IV ONE (11:00)
[2021-04-04] MEDS ORDERED: SODIUM CHLORIDE 0.9% IV ONE (11:00)
[2021-04-04 12:58] VITALS: BP 129/71
[2021-04-04] MEDS ORDERED: HEPARIN LOCK FLUSH 500 UNIT/5 ML SYRINGE IV ONE (13:35)
== END 2021-04-04 15:21 | disposition home or self-care (01) | DRG 847 ==
LOC: N.TELES 13:17
PROVIDERS: ADMIT Internal Medicine Hematology & Oncology; ATTEND Internal Medicine Hematology & Oncology

== ENCOUNTER 2021-04-20 08:00 | Inpatient (IN) ==
[2021-04-20] MEDS: PALONOSETRON 0.25 MG/5 ML VIAL IV SCH (10:22)
[2021-04-20] MEDS: DEXAMETHASONE 10 MG/1 ML VIAL IV SCH (10:24)
[2021-04-20] MEDS: predniSONE 50 MG TABLET PO SCH ×2 (10:26→21:22)
[2021-04-20] MEDS ORDERED: FOSAPREPITANT 150 MG in SODIUM CHLORIDE 0.9% 100 ML IV ONE (10:30)
[2021-04-20] MEDS ORDERED: SODIUM CHLORIDE 0.9% IV ONE (11:00)
[2021-04-20] MEDS ORDERED: RITUXIMAB ABBS IV ONE (11:00)
[2021-04-20 11:02] LABS: Basophils % 0.4 % (0.0-0.8); Eosinophils % 0.8 % (0.00-10.9); Hematocrit 35.2 VOL% (42.0-52.0); Hemoglobin 11.4 GM/DL (14.0-18.0); Immature Granulocytes % 5.4 %; Immature Granulocytes Absolute 0.26 #; Lymphocytes % 20.5 % (21.2-54.2); Mean Corpuscular HGB Conc 32.4 GM/DL (32-36); Mean Corpuscular Volume 101.4 FL (87-102); Mean Platelet Volume 8.9 FL (9.6-12.0); Monocytes % 13.2 % (1.7-12.7); Neutrophils % 59.7 % (38.7-73.9); Platelet Count 195 T/CUMM (130-400); Red Blood Count 3.47 MC/CUMM (3.8-5.5); Red Cell Distribution Width 14.6 % (9.3-17.3); White Blood Count 4.8 T/CUMM (4-12)
[2021-04-20] MEDS: DOXORUBICIN IV SCH (11:20)
[2021-04-20] MEDS: VINCRISTINE IV SCH (11:20)
[2021-04-20] MEDS: ETOPOSIDE IV SCH (11:20)
[2021-04-20] MEDS: [UNRECOGNIZED DRUG - OTHER] IV SCH (11:20)
[2021-04-20 11:28] LABS: Eosinophils 1 % (0-10); Hypochromia Slight; Lymphocytes 19 % (20-55); Microcytosis Slight; Platelet Estimate Adequate; Segmented Neutrophils 68 % (50-85); Total Cells Counted 100
[2021-04-20 11:41] LABS: Albumin 3.3 G/DL (3.4-5.0); Bilirubin,Total 0.4 MG/DL (0.20-1.00); Calcium 8.7 MG/DL (8.5-10.1); Osmolality,Calculated 276.4 MOS/KG (273-304); Potassium 3.9 MMOL/L (3.5-5.1); Total Protein 6.9 G/DL (6.4-8.2); Uric Acid 4.1 MG/DL (3.5-7.2)
[2021-04-20] MEDS ORDERED: ONDANSETRON 4 MG/2 ML VIAL IV PRN (21:35)
[2021-04-20] MEDS ORDERED: ACETAMINOPHEN 325 MG TABLET PO PRN (21:35)
[2021-04-20] MEDS ORDERED: MYLANTA/LIDO VISC 2:1 300 ML BOTTLE SWISH/SWAL PRN (21:35)
[2021-04-20] MEDS ORDERED: PROMETHAZINE INJ 25 MG in SODIUM CHLORIDE 0.9% 50 ML IV PRN (21:35)
[2021-04-20] MEDS ORDERED: LACTULOSE 20 GM/30 ML UDCUP PO PRN (21:35)
[2021-04-20] MEDS ORDERED: guaiFENesin 200 MG/10 ML UDCUP PO PRN (21:35)
[2021-04-20] MEDS ORDERED: chlorproMAZINE INJ 50 MG in SODIUM CHLORIDE 0.9% 100 ML IV PRN (21:35)
[2021-04-20] MEDS ORDERED: chlorproMAZINE INJ 25 MG in SODIUM CHLORIDE 0.9% 100 ML IV PRN (21:35)
[2021-04-20] MEDS ORDERED: MYLANTA/LIDO VISC 2:1 300 ML BOTTLE SWISH/SPIT PRN (21:35)
[2021-04-20] MEDS ORDERED: traMADol 50 MG TABLET PO PRN (21:35)
[2021-04-20] MEDS ORDERED: MAGNESIUM HYDROXIDE SUSP 30 ML UDCUP PO PRN (21:35)
[2021-04-20] MEDS ORDERED: diphenhydrAMINE CAP 25 MG CAPSULE PO PRN (21:35)
[2021-04-20] MEDS ORDERED: LOPERAMIDE 2 MG CAPSULE PO PRN ×2 (21:35)
[2021-04-20] MEDS ORDERED: ALUMINUM/MAGNES/SIMETH MAX STR 30 ML UDCUP PO PRN (21:35)
[2021-04-20] MEDS ORDERED: TEMAZEPAM 7.5 MG CAPSULE PO PRN (21:35)
[2021-04-20] MEDS ORDERED: chlorproMAZINE 25 MG TABLET PO PRN (22:12)
[2021-04-21 05:00] LABS: Basophils % 0.1 % (0.0-0.8); Hematocrit 33.6 VOL% (42.0-52.0); Hemoglobin 10.9 GM/DL (14.0-18.0); Immature Granulocytes Absolute 0.69 #; Lymphocytes # 0.7 10*3/uL (1.4-4.0); Lymphocytes % 5.1 % (21.2-54.2); Mean Corpuscular HGB Conc 32.4 GM/DL (32-36); Mean Corpuscular Volume 100.9 FL (87-102); Mean Platelet Volume 9.2 FL (9.6-12.0); Monocytes % 0.9 % (1.7-12.7); Neutrophils % 88.9 % (38.7-73.9); Platelet Count 235 T/CUMM (130-400); Red Blood Count 3.33 MC/CUMM (3.8-5.5); Red Cell Distribution Width 13.8 % (9.3-17.3); White Blood Count 13.9 T/CUMM (4-12)
[2021-04-21 05:21] LABS: Bilirubin,Total 0.4 MG/DL (0.20-1.00); Calcium 9.2 MG/DL (8.5-10.1); Osmolality,Calculated 274.8 MOS/KG (273-304); Total Protein 6.7 G/DL (6.4-8.2)
[2021-04-21 05:23] LABS: Band Neutrophils 2 % (0-10); Hypochromia 1+; Lymphocytes 6 % (20-55); Metamyelocytes 1 %; Segmented Neutrophils 90 % (50-85); Total Cells Counted 100
[2021-04-21 05:24] LABS: Microcytosis 1+; Tear Drop Cells Slight
[2021-04-21 05:25] LABS: Platelet Estimate Normal
[2021-04-21] MEDS: PALONOSETRON 0.25 MG/5 ML VIAL IV SCH (08:41)
[2021-04-21] MEDS: PANTOPRAZOLE 40 MG TABLET PO SCH (09:36)
[2021-04-21] MEDS: SULFAMETHOX/TRIMETHOPRIM 800-160 MG TABLET PO SCH (09:36)
[2021-04-21] MEDS: predniSONE 50 MG TABLET PO SCH ×2 (09:36→21:10)
[2021-04-21] MEDS: DEXAMETHASONE 10 MG/1 ML VIAL IV SCH (09:37)
[2021-04-21] MEDS: FOLIC ACID 1 MG TABLET PO SCH (09:37)
[2021-04-21] MEDS: ENOXAPARIN 40 MG/0.4 ML SYRINGE SUBCUT SCH (09:38)
[2021-04-21] MEDS: EMTRICITABINE TENOFOVIR ALAFEN PO SCH (10:20)
[2021-04-21] MEDS: [UNRECOGNIZED DRUG - OTHER] IV SCH (12:06)
[2021-04-21] MEDS: ETOPOSIDE IV SCH (12:06)
[2021-04-21] MEDS: VINCRISTINE IV SCH (12:06)
[2021-04-21] MEDS: DOXORUBICIN IV SCH (12:06)
[2021-04-22 04:18] LABS: Basophils % 0.1 % (0.0-0.8); Hematocrit 30.6 VOL% (42.0-52.0); Hemoglobin 10.1 GM/DL (14.0-18.0); Immature Granulocytes % 5.4 %; Immature Granulocytes Absolute 0.76 #; Lymphocytes # 0.4 10*3/uL (1.4-4.0); Lymphocytes % 2.8 % (21.2-54.2); Mean Platelet Volume 9.3 FL (9.6-12.0); Neutrophils % 89.7 % (38.7-73.9); Platelet Count 252 T/CUMM (130-400); Red Blood Count 3.09 MC/CUMM (3.8-5.5); Red Cell Distribution Width 13.8 % (9.3-17.3); White Blood Count 14.2 T/CUMM (4-12)
[2021-04-22 04:41] LABS: Band Neutrophils 1 % (0-10); Hypochromia Slight; Lymphocytes 5 % (20-55); Microcytosis Slight; Platelet Estimate Adequate; Segmented Neutrophils 91 % (50-85); Total Cells Counted 100
[2021-04-22 04:42] LABS: Albumin 2.8 G/DL (3.4-5.0); Bilirubin,Total 0.4 MG/DL (0.20-1.00); Calcium 8.6 MG/DL (8.5-10.1); Osmolality,Calculated 277.7 MOS/KG (273-304); Potassium 3.9 MMOL/L (3.5-5.1); Total Protein 6.1 G/DL (6.4-8.2)
[2021-04-22] MEDS: SULFAMETHOX/TRIMETHOPRIM 800-160 MG TABLET PO SCH (08:29)
[2021-04-22] MEDS: PANTOPRAZOLE 40 MG TABLET PO SCH (08:29)
[2021-04-22] MEDS: FOLIC ACID 1 MG TABLET PO SCH (08:29)
[2021-04-22] MEDS: predniSONE 50 MG TABLET PO SCH ×2 (08:29→20:56)
[2021-04-22] MEDS: EMTRICITABINE TENOFOVIR ALAFEN PO SCH (08:30)
[2021-04-22] MEDS: ENOXAPARIN 40 MG/0.4 ML SYRINGE SUBCUT SCH (08:30)
[2021-04-22] MEDS: PALONOSETRON 0.25 MG/5 ML VIAL IV SCH (09:38)
[2021-04-22] MEDS: DEXAMETHASONE 10 MG/1 ML VIAL IV SCH (09:38)
[2021-04-22] MEDS ORDERED: FOSAPREPITANT 150 MG in SODIUM CHLORIDE 0.9% 100 ML IV ONE (10:00)
[2021-04-22] MEDS: SODIUM CHLORIDE 0.9% 1,000 ML IV SCH ×2 (10:23→20:57)
[2021-04-22] MEDS: VINCRISTINE IV SCH (12:18)
[2021-04-22] MEDS: DOXORUBICIN IV SCH (12:18)
[2021-04-22] MEDS: [UNRECOGNIZED DRUG - OTHER] IV SCH (12:18)
[2021-04-22] MEDS: ETOPOSIDE IV SCH (12:18)
[2021-04-23 05:30] LABS: Basophils % 0.2 % (0.0-0.8); Hematocrit 29.1 VOL% (42.0-52.0); Hemoglobin 9.8 GM/DL (14.0-18.0); Immature Granulocytes % 7.9 %; Immature Granulocytes Absolute 0.91 #; Lymphocytes # 0.2 10*3/uL (1.4-4.0); Lymphocytes % 2.1 % (21.2-54.2); Mean Corpuscular HGB Conc 33.7 GM/DL (32-36); Mean Platelet Volume 9.4 FL (9.6-12.0); Monocytes % 3.4 % (1.7-12.7); Neutrophils % 86.4 % (38.7-73.9); Platelet Count 218 T/CUMM (130-400); Red Blood Count 2.94 MC/CUMM (3.8-5.5); Red Cell Distribution Width 13.6 % (9.3-17.3); White Blood Count 11.5 T/CUMM (4-12)
[2021-04-23 05:52] LABS: Alanine Aminotransferase 15 U/L (16-61); Albumin 2.5 G/DL (3.4-5.0); Alkaline Phosphatase 84 U/L (45-117); Aspartate Amino Transferase 13 U/L (0-37); Bilirubin,Total < 0.39 MG/DL (0.20-1.00); Blood Urea Nitrogen 15 MG/DL (7-18); Calcium 8.1 MG/DL (8.5-10.1); Carbon Dioxide 25 MMOL/L (21-32); Estimated Glom Filtration Rate 134 ML/MIN; Glucose 189 MG/DL (74-106); Osmolality,Calculated 286.3 MOS/KG (273-304); Potassium 3.4 MMOL/L (3.5-5.1); Sodium 141 MMOL/L (136-145); Total Protein 5.6 G/DL (6.4-8.2)
[2021-04-23 05:58] LABS: Band Neutrophils 6 % (0-10); Hypochromia 1+; Lymphocytes 5 % (20-55); Microcytosis 1+; Platelet Estimate Adequate; Segmented Neutrophils 88 % (50-85); Total Cells Counted 100
[2021-04-23] MEDS: PANTOPRAZOLE 40 MG TABLET PO SCH (08:42)
[2021-04-23] MEDS: predniSONE 50 MG TABLET PO SCH ×2 (08:42→20:49)
[2021-04-23] MEDS: FOLIC ACID 1 MG TABLET PO SCH (08:42)
[2021-04-23] MEDS: EMTRICITABINE TENOFOVIR ALAFEN PO SCH (08:42)
[2021-04-23] MEDS: SULFAMETHOX/TRIMETHOPRIM 800-160 MG TABLET PO SCH (08:42)
[2021-04-23] MEDS: ENOXAPARIN 40 MG/0.4 ML SYRINGE SUBCUT SCH (08:43)
[2021-04-23] MEDS ORDERED: ERGOCALCIFEROL 50,000 UNIT CAPSULE PO SCH (09:00)
[2021-04-23] MEDS: PALONOSETRON 0.25 MG/5 ML VIAL IV SCH (09:58)
[2021-04-23] MEDS: DEXAMETHASONE 10 MG/1 ML VIAL IV SCH (09:58)
[2021-04-23] MEDS: SODIUM CHLORIDE 0.9% 1,000 ML IV SCH ×2 (10:04→20:48)
[2021-04-23] MEDS ORDERED: POTASSIUM CHLORIDE 20 MEQ TABLET PO ONE (11:48)
[2021-04-23] MEDS: ETOPOSIDE IV SCH (13:38)
[2021-04-23] MEDS: VINCRISTINE IV SCH (13:38)
[2021-04-23] MEDS: DOXORUBICIN IV SCH (13:38)
[2021-04-23] MEDS: [UNRECOGNIZED DRUG - OTHER] IV SCH (13:38)
[2021-04-24 05:23] LABS: Basophils % 0.1 % (0.0-0.8); Hematocrit 30.6 VOL% (42.0-52.0); Hemoglobin 10.4 GM/DL (14.0-18.0); Immature Granulocytes % 10.9 %; Lymphocytes # 0.3 10*3/uL (1.4-4.0); Lymphocytes % 1.9 % (21.2-54.2); Mean Corpuscular Volume 97.8 FL (87-102); NRBC # 0.02 10*3/uL; Neutrophils % 86.1 % (38.7-73.9); Platelet Count 222 T/CUMM (130-400); Red Blood Count 3.13 MC/CUMM (3.8-5.5); Red Cell Distribution Width 13.6 % (9.3-17.3); White Blood Count 16.5 T/CUMM (4-12)
[2021-04-24 05:43] LABS: Band Neutrophils 2 % (0-10); Lymphocytes 1 % (20-55); Platelet Estimate Adequate; Segmented Neutrophils 96 % (50-85); Total Cells Counted 100
[2021-04-24 05:44] LABS: Hypochromia 1+; Microcytosis 1+
[2021-04-24 06:03] LABS: Alanine Aminotransferase 24 U/L (16-61); Albumin 2.5 G/DL (3.4-5.0); Alkaline Phosphatase 82 U/L (45-117); Aspartate Amino Transferase 17 U/L (0-37); Bilirubin,Total < 0.39 MG/DL (0.20-1.00); Blood Urea Nitrogen 14 MG/DL (7-18); Calcium 8.2 MG/DL (8.5-10.1); Carbon Dioxide 23 MMOL/L (21-32); Estimated Glom Filtration Rate 134 ML/MIN; Glucose 141 MG/DL (74-106); Osmolality,Calculated 285.1 MOS/KG (273-304); Potassium 3.9 MMOL/L (3.5-5.1); Sodium 142 MMOL/L (136-145); Total Protein 5.7 G/DL (6.4-8.2)
[2021-04-24] MEDS: SULFAMETHOX/TRIMETHOPRIM 800-160 MG TABLET PO SCH (09:43)
[2021-04-24] MEDS: FOLIC ACID 1 MG TABLET PO SCH (09:43)
[2021-04-24] MEDS: predniSONE 50 MG TABLET PO SCH (09:44)
[2021-04-24] MEDS: EMTRICITABINE TENOFOVIR ALAFEN PO SCH (09:44)
[2021-04-24] MEDS: PANTOPRAZOLE 40 MG TABLET PO SCH (09:44)
[2021-04-24] MEDS: DEXAMETHASONE 10 MG/1 ML VIAL IV SCH (09:44)
[2021-04-24] MEDS: PALONOSETRON 0.25 MG/5 ML VIAL IV SCH (09:45)
[2021-04-24] MEDS: ENOXAPARIN 40 MG/0.4 ML SYRINGE SUBCUT SCH (09:45)
[2021-04-24] MEDS ORDERED: MESNA IV ONE (10:00)
[2021-04-24] MEDS ORDERED: SODIUM CHLORIDE 0.9% IV ONE (10:00)
[2021-04-24] MEDS ORDERED: CYCLOPHOSPHAMIDE INJ 1,500 MG in SODIUM CHLORIDE 0.9% 250 ML IV ONE (11:00)
[2021-04-24 14:25] VITALS: BP 132/74
[2021-04-24] MEDS ORDERED: HEPARIN LOCK FLUSH 500 UNIT/5 ML SYRINGE IV ONE (18:20)
[2021-04-24] MEDS: SODIUM CHLORIDE 0.9% 1,000 ML IV SCH (19:21)
== END 2021-04-24 19:07 | disposition home or self-care (01) | DRG 847 ==
LOC: N.TELES 08:45
PROVIDERS: ADMIT Internal Medicine Hematology & Oncology; ATTEND Internal Medicine Hematology & Oncology

== ENCOUNTER 2021-05-12 09:12 | Inpatient (IN) ==
[2021-05-12 10:28] LABS: Basophils % 0.3 % (0.0-0.8); Eosinophils % 0.1 % (0.00-10.9); Hemoglobin 10.3 GM/DL (14.0-18.0); Immature Granulocytes % 6.2 %; Immature Granulocytes Absolute 0.42 #; Lymphocytes # 1.4 10*3/uL (1.4-4.0); Lymphocytes % 20.7 % (21.2-54.2); Mean Corpuscular HGB Conc 32.2 GM/DL (32-36); Mean Corpuscular Volume 102.6 FL (87-102); Mean Platelet Volume 8.8 FL (9.6-12.0); Monocytes % 11.9 % (1.7-12.7); NRBC # 0.14 10*3/uL; Neutrophils % 60.8 % (38.7-73.9); Platelet Count 187 T/CUMM (130-400); Red Blood Count 3.12 MC/CUMM (3.8-5.5); Red Cell Distribution Width 14.4 % (9.3-17.3); White Blood Count 6.8 T/CUMM (4-12)
[2021-05-12 10:49] LABS: Alanine Aminotransferase 18 U/L (16-61); Albumin 3.6 G/DL (3.4-5.0); Alkaline Phosphatase 100 U/L (45-117); Aspartate Amino Transferase 12 U/L (0-37); Bilirubin,Total < 0.39 MG/DL (0.20-1.00); Blood Urea Nitrogen 11 MG/DL (7-18); Carbon Dioxide 27 MMOL/L (21-32); Estimated Glom Filtration Rate 135 ML/MIN; Glucose 91 MG/DL (74-106); Osmolality,Calculated 275.5 MOS/KG (273-304); Potassium 3.7 MMOL/L (3.5-5.1); Sodium 139 MMOL/L (136-145); Total Protein 6.9 G/DL (6.4-8.2); Uric Acid 4.5 MG/DL (3.5-7.2)
[2021-05-12 10:50] LABS: Band Neutrophils 2 % (0-10); Hypochromia 1+; Lymphocytes 22 % (20-55); Microcytosis 1+; Nucleated Red Blood Cells 3 (0-5); Platelet Estimate Adequate; Segmented Neutrophils 65 % (50-85); Total Cells Counted 100
[2021-05-12] MEDS ORDERED: FOSAPREPITANT 150 MG in SODIUM CHLORIDE 0.9% 100 ML IV ONE (11:00)
[2021-05-12] MEDS ORDERED: ACETAMINOPHEN 325 MG TABLET PO PRN (11:42)
[2021-05-12] MEDS ORDERED: MYLANTA/LIDO VISC 2:1 300 ML BOTTLE SWISH/SWAL PRN (11:42)
[2021-05-12] MEDS ORDERED: MAGNESIUM HYDROXIDE SUSP 30 ML UDCUP PO PRN (11:42)
[2021-05-12] MEDS ORDERED: ALPRAZolam 0.25 MG TABLET PO PRN (11:42)
[2021-05-12] MEDS ORDERED: LOPERAMIDE 2 MG CAPSULE PO PRN ×2 (11:42)
[2021-05-12] MEDS ORDERED: PROMETHAZINE INJ 25 MG in SODIUM CHLORIDE 0.9% 50 ML IV PRN (11:42)
[2021-05-12] MEDS ORDERED: traMADol 50 MG TABLET PO PRN (11:42)
[2021-05-12] MEDS ORDERED: diphenhydrAMINE CAP 25 MG CAPSULE PO PRN (11:42)
[2021-05-12] MEDS ORDERED: LACTULOSE 20 GM/30 ML UDCUP PO PRN (11:42)
[2021-05-12] MEDS ORDERED: ALUMINUM/MAGNES/SIMETH MAX STR 30 ML UDCUP PO PRN (11:42)
[2021-05-12] MEDS ORDERED: MYLANTA/LIDO VISC 2:1 300 ML BOTTLE SWISH/SPIT PRN (11:42)
[2021-05-12] MEDS ORDERED: TEMAZEPAM 7.5 MG CAPSULE PO PRN (11:42)
[2021-05-12] MEDS ORDERED: guaiFENesin 200 MG/10 ML UDCUP PO PRN (11:42)
[2021-05-12] MEDS: DEXAMETHASONE 10 MG/1 ML VIAL IV SCH (11:55)
[2021-05-12] MEDS: PALONOSETRON 0.25 MG/5 ML VIAL IV SCH (11:58)
[2021-05-12] MEDS ORDERED: RITUXIMAB ABBS IV ONE (12:00)
[2021-05-12] MEDS: predniSONE 50 MG TABLET PO SCH ×2 (12:00→20:45)
[2021-05-12] MEDS ORDERED: SODIUM CHLORIDE 0.9% IV ONE (12:00)
[2021-05-12] MEDS: [UNRECOGNIZED DRUG - OTHER] IV SCH (13:02)
[2021-05-12] MEDS: ETOPOSIDE IV SCH (13:02)
[2021-05-12] MEDS: DOXORUBICIN IV SCH (13:02)
[2021-05-12] MEDS: VINCRISTINE IV SCH (13:02)
[2021-05-12] MEDS ORDERED: ERGOCALCIFEROL 50,000 UNIT CAPSULE PO SCH (19:30)
[2021-05-13] MEDS: FOLIC ACID 1 MG TABLET PO SCH (11:00)
[2021-05-13] MEDS: predniSONE 50 MG TABLET PO SCH ×2 (11:00→20:33)
[2021-05-13] MEDS: SULFAMETHOX/TRIMETHOPRIM 800-160 MG TABLET PO SCH (11:00)
[2021-05-13] MEDS: PALONOSETRON 0.25 MG/5 ML VIAL IV SCH (11:01)
[2021-05-13] MEDS: DEXAMETHASONE 10 MG/1 ML VIAL IV SCH (11:02)
[2021-05-13] MEDS: NON-FORMULARY MEDICATION (Emtricitabine-Tenofovir Alafen [Descovy] 200-25 mg tablet) PO SCH (11:06)
[2021-05-13] MEDS: VINCRISTINE IV SCH (12:36)
[2021-05-13] MEDS: [UNRECOGNIZED DRUG - OTHER] IV SCH (12:36)
[2021-05-13] MEDS: DOXORUBICIN IV SCH (12:36)
[2021-05-13] MEDS: ETOPOSIDE IV SCH (12:36)
[2021-05-14] MEDS ORDERED: FOSAPREPITANT 150 MG in SODIUM CHLORIDE 0.9% 100 ML IV ONE (09:00)
[2021-05-14] MEDS: predniSONE 50 MG TABLET PO SCH ×2 (10:05→20:46)
[2021-05-14] MEDS: DEXAMETHASONE 10 MG/1 ML VIAL IV SCH (10:06)
[2021-05-14] MEDS: FOLIC ACID 1 MG TABLET PO SCH (10:06)
[2021-05-14] MEDS: PALONOSETRON 0.25 MG/5 ML VIAL IV SCH (10:06)
[2021-05-14] MEDS: NON-FORMULARY MEDICATION (Emtricitabine-Tenofovir Alafen [Descovy] 200-25 mg tablet) PO SCH (10:10)
[2021-05-14] MEDS: DOXORUBICIN IV SCH (11:18)
[2021-05-14] MEDS: ETOPOSIDE IV SCH (11:18)
[2021-05-14] MEDS: [UNRECOGNIZED DRUG - OTHER] IV SCH (11:18)
[2021-05-14] MEDS: VINCRISTINE IV SCH (11:18)
[2021-05-15 05:40] LABS: Basophils % 0.1 % (0.0-0.8); Hematocrit 26.1 VOL% (42.0-52.0); Hemoglobin 8.5 GM/DL (14.0-18.0); Immature Granulocytes % 7.8 %; Immature Granulocytes Absolute 0.87 #; Lymphocytes # 0.2 10*3/uL (1.4-4.0); Mean Corpuscular HGB Conc 32.6 GM/DL (32-36); Mean Corpuscular Volume 100.8 FL (87-102); Mean Platelet Volume 9.1 FL (9.6-12.0); Monocytes % 2.1 % (1.7-12.7); NRBC # 0.02 10*3/uL; Platelet Count 221 T/CUMM (130-400); Red Blood Count 2.59 MC/CUMM (3.8-5.5); Red Cell Distribution Width 14.2 % (9.3-17.3); White Blood Count 11.2 T/CUMM (4-12)
[2021-05-15 05:47] LABS: Albumin 2.7 G/DL (3.4-5.0); Bilirubin,Total 0.6 MG/DL (0.20-1.00); Calcium 8.1 MG/DL (8.5-10.1); Osmolality,Calculated 275.7 MOS/KG (273-304); Potassium 3.5 MMOL/L (3.5-5.1); Total Protein 5.6 G/DL (6.4-8.2)
[2021-05-15 06:05] LABS: Band Neutrophils 1 % (0-10); Hypochromia 1+; Lymphocytes 3 % (20-55); Microcytosis 1+; Platelet Estimate Adequate; Segmented Neutrophils 95 % (50-85); Total Cells Counted 100
[2021-05-15] MEDS: FOLIC ACID 1 MG TABLET PO SCH (09:14)
[2021-05-15] MEDS: SULFAMETHOX/TRIMETHOPRIM 800-160 MG TABLET PO SCH (09:14)
[2021-05-15] MEDS: predniSONE 50 MG TABLET PO SCH ×2 (09:14→20:51)
[2021-05-15] MEDS: DEXAMETHASONE 10 MG/1 ML VIAL IV SCH (09:15)
[2021-05-15] MEDS: PALONOSETRON 0.25 MG/5 ML VIAL IV SCH (09:15)
[2021-05-15] MEDS: NON-FORMULARY MEDICATION (Emtricitabine-Tenofovir Alafen [Descovy] 200-25 mg tablet) PO SCH (09:19)
[2021-05-15] MEDS: DOXORUBICIN IV SCH ×2 (10:21→17:26)
[2021-05-15] MEDS: ETOPOSIDE IV SCH ×2 (10:21→17:26)
[2021-05-15] MEDS: VINCRISTINE IV SCH ×2 (10:21→17:26)
[2021-05-15] MEDS: [UNRECOGNIZED DRUG - OTHER] IV SCH ×2 (10:21→17:26)
[2021-05-15] MEDS: ONDANSETRON 4 MG/2 ML VIAL IV PRN (17:25)
[2021-05-16] MEDS: ONDANSETRON 4 MG/2 ML VIAL IV PRN (01:42)
[2021-05-16 06:38] LABS: Basophils % 0.1 % (0.0-0.8); Hematocrit 24.6 VOL% (42.0-52.0); Hemoglobin 8.4 GM/DL (14.0-18.0); Immature Granulocytes % 10.1 %; Immature Granulocytes Absolute 1.92 #; Lymphocytes # 0.2 10*3/uL (1.4-4.0); Lymphocytes % 0.9 % (21.2-54.2); Mean Corpuscular HGB Conc 34.1 GM/DL (32-36); Mean Corpuscular Volume 97.6 FL (87-102); Mean Platelet Volume 9.2 FL (9.6-12.0); Monocytes % 0.7 % (1.7-12.7); NRBC # 0.04 10*3/uL; Neutrophils % 88.2 % (38.7-73.9); Platelet Count 219 T/CUMM (130-400); Red Blood Count 2.52 MC/CUMM (3.8-5.5); Red Cell Distribution Width 13.4 % (9.3-17.3); White Blood Count 19.1 T/CUMM (4-12)
[2021-05-16 07:09] LABS: Albumin 2.6 G/DL (3.4-5.0); Bilirubin,Total 0.9 MG/DL (0.20-1.00); Osmolality,Calculated 280.4 MOS/KG (273-304); Potassium 3.4 MMOL/L (3.5-5.1); Total Protein 5.4 G/DL (6.4-8.2)
[2021-05-16 07:17] LABS: Band Neutrophils 5 % (0-10); Lymphocytes 2 % (20-55); Nucleated Red Blood Cells 1 (0-5); Platelet Estimate Normal; Segmented Neutrophils 92 % (50-85); Total Cells Counted 100
[2021-05-16 07:18] LABS: Hypochromia 1+
[2021-05-16] MEDS: FOLIC ACID 1 MG TABLET PO SCH (08:42)
[2021-05-16] MEDS: predniSONE 50 MG TABLET PO SCH (08:42)
[2021-05-16] MEDS: DEXAMETHASONE 10 MG/1 ML VIAL IV SCH (08:42)
[2021-05-16] MEDS: NON-FORMULARY MEDICATION (Emtricitabine-Tenofovir Alafen [Descovy] 200-25 mg tablet) PO SCH (08:43)
[2021-05-16] MEDS: PALONOSETRON 0.25 MG/5 ML VIAL IV SCH (08:43)
[2021-05-16] MEDS ORDERED: CYCLOPHOSPHAMIDE INJ 1,500 MG in SODIUM CHLORIDE 0.9% 250 ML IV ONE (11:00)
[2021-05-16] MEDS ORDERED: HEPARIN LOCK FLUSH 500 UNIT/5 ML SYRINGE IV ONE (12:50)
[2021-05-16 13:51] VITALS: BP 130/72
== END 2021-05-16 14:04 | disposition home or self-care (01) | DRG 976 ==
LOC: N.TELES 09:36
PROVIDERS: ADMIT Internal Medicine Hematology & Oncology; ATTEND Internal Medicine Hematology & Oncology

== ENCOUNTER 2021-06-01 09:27 | Inpatient (IN) ==
[2021-06-01] MEDS ORDERED: SODIUM CHLORIDE 0.9% IV ONE (14:30)
[2021-06-01] MEDS ORDERED: RITUXIMAB ABBS IV ONE (14:30)
[2021-06-01] MEDS: DEXAMETHASONE 10 MG/1 ML VIAL IV SCH (15:06)
[2021-06-01] MEDS: predniSONE 50 MG TABLET PO SCH ×2 (15:06→20:44)
[2021-06-01] MEDS: PALONOSETRON 0.25 MG/5 ML VIAL IV SCH (15:06)
[2021-06-01] MEDS: DOXORUBICIN IV SCH (15:07)
[2021-06-01] MEDS: [UNRECOGNIZED DRUG - OTHER] IV SCH (15:07)
[2021-06-01] MEDS: VINCRISTINE IV SCH (15:07)
[2021-06-01] MEDS: ETOPOSIDE IV SCH (15:07)
[2021-06-01] MEDS: FOSAPREPITANT 150 MG in SODIUM CHLORIDE 0.9% 100 ML IV SCH (15:07)
[2021-06-01] MEDS ORDERED: MAGNESIUM HYDROXIDE SUSP 30 ML UDCUP PO PRN (17:26)
[2021-06-01] MEDS ORDERED: traMADol 50 MG TABLET PO PRN (17:26)
[2021-06-01] MEDS ORDERED: ACETAMINOPHEN 325 MG TABLET PO PRN (17:26)
[2021-06-01] MEDS ORDERED: ALUMINUM/MAGNES/SIMETH MAX STR 30 ML UDCUP PO PRN (17:26)
[2021-06-01] MEDS ORDERED: LOPERAMIDE 2 MG CAPSULE PO PRN ×2 (17:26)
[2021-06-01] MEDS ORDERED: ALPRAZolam 0.25 MG TABLET PO PRN (17:26)
[2021-06-01] MEDS ORDERED: MYLANTA/LIDO VISC 2:1 300 ML BOTTLE SWISH/SWAL PRN (17:26)
[2021-06-01] MEDS ORDERED: TEMAZEPAM 7.5 MG CAPSULE PO PRN (17:26)
[2021-06-01] MEDS ORDERED: PROMETHAZINE INJ 25 MG in SODIUM CHLORIDE 0.9% 50 ML IV PRN (17:26)
[2021-06-01] MEDS ORDERED: LACTULOSE 20 GM/30 ML UDCUP PO PRN (17:26)
[2021-06-01] MEDS ORDERED: ONDANSETRON 4 MG/2 ML VIAL IV PRN (17:26)
[2021-06-01] MEDS ORDERED: MYLANTA/LIDO VISC 2:1 300 ML BOTTLE SWISH/SPIT PRN (17:26)
[2021-06-01] MEDS ORDERED: SULFAMETHOX/TRIMETHOPRIM 800-160 MG TABLET PO SCH (17:30)
[2021-06-01 18:09] LABS: Basophils % 0.3 % (0.0-0.8); Eosinophils % 0.3 % (0.00-10.9); Hematocrit 26.7 VOL% (42.0-52.0); Hemoglobin 8.5 GM/DL (14.0-18.0); Lymphocytes # 0.8 10*3/uL (1.4-4.0); Lymphocytes % 10.2 % (21.2-54.2); Mean Corpuscular HGB Conc 31.8 GM/DL (32-36); Mean Corpuscular Volume 104.7 FL (87-102); Mean Platelet Volume 9.2 FL (9.6-12.0); Monocytes % 1.9 % (1.7-12.7); Platelet Count 180 T/CUMM (130-400); Red Blood Count 2.55 MC/CUMM (3.8-5.5); White Blood Count 7.7 T/CUMM (4-12)
[2021-06-01 18:31] LABS: Alanine Aminotransferase 20 U/L (16-61); Alkaline Phosphatase 93 U/L (45-117); Aspartate Amino Transferase 13 U/L (0-37); Bilirubin,Total < 0.39 MG/DL (0.20-1.00); Blood Urea Nitrogen 8 MG/DL (7-18); Calcium 8.3 MG/DL (8.5-10.1); Carbon Dioxide 25 MMOL/L (21-32); Estimated Glom Filtration Rate 100 ML/MIN; Glucose 134 MG/DL (74-106); Osmolality,Calculated 274.7 MOS/KG (273-304); Potassium 4.3 MMOL/L (3.5-5.1); Sodium 138 MMOL/L (136-145); Total Protein 5.9 G/DL (6.4-8.2)
[2021-06-01 18:56] LABS: Anisocytosis 2+; Band Neutrophils 3 % (0-10); Eosinophils 1 % (0-10); Lymphocytes 5 % (20-55); Metamyelocytes 2 %; Segmented Neutrophils 84 % (50-85); Tear Drop Cells Few; Total Cells Counted 100
[2021-06-01 18:57] LABS: Polychromasia Few; Schistocytes Slight; Stomatocytes Few
[2021-06-01 18:59] LABS: Hypochromia Slight; Platelet Estimate Normal
[2021-06-01] MEDS: SULFAMETHOX/TRIMETHOPRIM 800-160 MG TABLET PO SCH (20:45)
[2021-06-02 05:43] LABS: Basophils % 0.1 % (0.0-0.8); Hematocrit 27.7 VOL% (42.0-52.0); Hemoglobin 8.8 GM/DL (14.0-18.0); Lymphocytes # 0.6 10*3/uL (1.4-4.0); Mean Corpuscular HGB Conc 31.8 GM/DL (32-36); Mean Corpuscular Volume 104.5 FL (87-102); Mean Platelet Volume 9.2 FL (9.6-12.0); Monocytes % 0.8 % (1.7-12.7); Neutrophils % 85.7 % (38.7-73.9); Platelet Count 208 T/CUMM (130-400); Red Blood Count 2.65 MC/CUMM (3.8-5.5); Red Cell Distribution Width 15.8 % (9.3-17.3)
[2021-06-02 06:06] LABS: Anisocytosis 1+; Band Neutrophils 1 % (0-10); Hypochromia 1+; Lymphocytes 7 % (20-55); Metamyelocytes 1 %; Microcytosis 1+; Nucleated Red Blood Cells 1 (0-5); Segmented Neutrophils 89 % (50-85); Tear Drop Cells Slight
[2021-06-02 06:07] LABS: Platelet Estimate Normal; Polychromasia Slight
[2021-06-02 06:12] LABS: Bilirubin,Total 0.4 MG/DL (0.20-1.00); Calcium 8.5 MG/DL (8.5-10.1); Osmolality,Calculated 276.5 MOS/KG (273-304); Potassium 3.9 MMOL/L (3.5-5.1); Total Protein 6.6 G/DL (6.4-8.2)
[2021-06-02 06:16] LABS: Folate > 24.00 NG/ML (5.38-24.0); Vitamin B12 1887 PG/ML (211-911)
[2021-06-02 06:36] LABS: Uric Acid 3.9 MG/DL (3.5-7.2)
[2021-06-02] MEDS: FOLIC ACID 1 MG TABLET PO SCH (09:29)
[2021-06-02] MEDS: predniSONE 50 MG TABLET PO SCH ×2 (09:29→20:38)
[2021-06-02] MEDS: PALONOSETRON 0.25 MG/5 ML VIAL IV SCH (09:30)
[2021-06-02] MEDS: DEXAMETHASONE 10 MG/1 ML VIAL IV SCH (09:31)
[2021-06-02] MEDS: NON-FORMULARY MEDICATION (Emtricitabine-Tenofovir Alafen [Descovy] 200-25 mg tablet) PO SCH (13:51)
[2021-06-02] MEDS: DOXORUBICIN IV SCH (15:20)
[2021-06-02] MEDS: VINCRISTINE IV SCH (15:20)
[2021-06-02] MEDS: ETOPOSIDE IV SCH (15:20)
[2021-06-02] MEDS: [UNRECOGNIZED DRUG - OTHER] IV SCH (15:20)
[2021-06-03 05:17] LABS: Basophils % 0.2 % (0.0-0.8); Hematocrit 26.4 VOL% (42.0-52.0); Hemoglobin 8.3 GM/DL (14.0-18.0); Lymphocytes # 0.3 10*3/uL (1.4-4.0); Lymphocytes % 3.1 % (21.2-54.2); Mean Corpuscular HGB Conc 31.4 GM/DL (32-36); Mean Corpuscular Volume 103.9 FL (87-102); Mean Platelet Volume 9.1 FL (9.6-12.0); Monocytes % 3.2 % (1.7-12.7); Neutrophils % 86.6 % (38.7-73.9); Platelet Count 213 T/CUMM (130-400); Red Blood Count 2.54 MC/CUMM (3.8-5.5); Red Cell Distribution Width 16.3 % (9.3-17.3); White Blood Count 11.1 T/CUMM (4-12)
[2021-06-03 05:44] LABS: Albumin 2.9 G/DL (3.4-5.0); Bilirubin,Total 0.4 MG/DL (0.20-1.00); Calcium 8.6 MG/DL (8.5-10.1); Osmolality,Calculated 276.7 MOS/KG (273-304); Potassium 3.9 MMOL/L (3.5-5.1); Total Protein 5.9 G/DL (6.4-8.2)
[2021-06-03 05:51] LABS: Anisocytosis 3+; Band Neutrophils 14 % (0-10); Lymphocytes 5 % (20-55); Macrocytosis 2+; Nucleated Red Blood Cells 1 (0-5); Platelet Estimate Normal; Segmented Neutrophils 80 % (50-85); Tear Drop Cells Few
[2021-06-03] MEDS: NON-FORMULARY MEDICATION (Emtricitabine-Tenofovir Alafen [Descovy] 200-25 mg tablet) PO SCH (08:38)
[2021-06-03] MEDS: FOLIC ACID 1 MG TABLET PO SCH (09:05)
[2021-06-03] MEDS: predniSONE 50 MG TABLET PO SCH ×2 (09:05→21:03)
[2021-06-03] MEDS: SULFAMETHOX/TRIMETHOPRIM 800-160 MG TABLET PO SCH (09:05)
[2021-06-03] MEDS: DEXAMETHASONE 10 MG/1 ML VIAL IV SCH (09:06)
[2021-06-03] MEDS: PALONOSETRON 0.25 MG/5 ML VIAL IV SCH (09:06)
[2021-06-03] MEDS: SODIUM CHLORIDE 0.9% 1,000 ML IV SCH ×2 (09:11→19:15)
[2021-06-03] MEDS: FOSAPREPITANT 150 MG in SODIUM CHLORIDE 0.9% 100 ML IV SCH (13:19)
[2021-06-03] MEDS: DOXORUBICIN IV SCH (14:47)
[2021-06-03] MEDS: VINCRISTINE IV SCH (14:47)
[2021-06-03] MEDS: ETOPOSIDE IV SCH (14:47)
[2021-06-03] MEDS: [UNRECOGNIZED DRUG - OTHER] IV SCH (14:47)
[2021-06-04 03:52] LABS: Hematocrit 23.9 VOL% (42.0-52.0); Hemoglobin 7.5 GM/DL (14.0-18.0); Lymphocytes # 0.2 10*3/uL (1.4-4.0); Mean Corpuscular HGB Conc 31.4 GM/DL (32-36); Mean Corpuscular Volume 103.9 FL (87-102); Mean Platelet Volume 8.6 FL (9.6-12.0); Monocytes % 2.2 % (1.7-12.7); Platelet Count 209 T/CUMM (130-400); Red Cell Distribution Width 15.9 % (9.3-17.3); White Blood Count 8.7 T/CUMM (4-12)
[2021-06-04 04:11] LABS: Albumin 2.5 G/DL (3.4-5.0); Bilirubin,Total 1.3 MG/DL (0.20-1.00); Calcium 7.7 MG/DL (8.5-10.1); Osmolality,Calculated 280.4 MOS/KG (273-304); Potassium 3.7 MMOL/L (3.5-5.1); Total Protein 5.3 G/DL (6.4-8.2)
[2021-06-04 04:17] LABS: Band Neutrophils 3 % (0-10); Hypochromia 1+; Lymphocytes 2 % (20-55); Microcytosis 1+; Platelet Estimate Adequate; Segmented Neutrophils 92 % (50-85)
[2021-06-04] MEDS ORDERED: ERGOCALCIFEROL 50,000 UNIT CAPSULE PO SCH (09:00)
[2021-06-04] MEDS ORDERED: SODIUM CHLORIDE 0.9% 1,000 ML IV PRN (09:03)
[2021-06-04] MEDS: DEXAMETHASONE 10 MG/1 ML VIAL IV SCH (09:46)
[2021-06-04] MEDS: PALONOSETRON 0.25 MG/5 ML VIAL IV SCH (09:46)
[2021-06-04] MEDS: FOLIC ACID 1 MG TABLET PO SCH (09:47)
[2021-06-04] MEDS: predniSONE 50 MG TABLET PO SCH ×2 (09:47→20:22)
[2021-06-04] MEDS: NON-FORMULARY MEDICATION (Emtricitabine-Tenofovir Alafen [Descovy] 200-25 mg tablet) PO SCH (10:17)
[2021-06-04] MEDS: VINCRISTINE IV SCH (14:19)
[2021-06-04] MEDS: DOXORUBICIN IV SCH (14:19)
[2021-06-04] MEDS: [UNRECOGNIZED DRUG - OTHER] IV SCH (14:19)
[2021-06-04] MEDS: ETOPOSIDE IV SCH (14:19)
[2021-06-04] MEDS: SODIUM CHLORIDE 0.9% 1,000 ML IV SCH ×3 (14:44→21:00)
[2021-06-05 04:50] LABS: Basophils % 0.2 % (0.0-0.8); Hematocrit 24.2 VOL% (42.0-52.0); Hemoglobin 7.8 GM/DL (14.0-18.0); Lymphocytes # 0.2 10*3/uL (1.4-4.0); Lymphocytes % 1.4 % (21.2-54.2); Mean Corpuscular HGB Conc 32.2 GM/DL (32-36); Mean Corpuscular Volume 100.8 FL (87-102); Mean Platelet Volume 9.1 FL (9.6-12.0); Neutrophils % 86.2 % (38.7-73.9); Platelet Count 190 T/CUMM (130-400); Red Cell Distribution Width 16.4 % (9.3-17.3); White Blood Count 11.2 T/CUMM (4-12)
[2021-06-05 05:10] LABS: Albumin 2.3 G/DL (3.4-5.0); Bilirubin,Total 0.4 MG/DL (0.20-1.00); Calcium 7.8 MG/DL (8.5-10.1); Total Protein 4.9 G/DL (6.4-8.2)
[2021-06-05 05:13] LABS: Potassium 3.5 MMOL/L (3.5-5.1)
[2021-06-05 05:23] LABS: Osmolality,Calculated 281.4 MOS/KG (273-304)
[2021-06-05 05:33] LABS: Anisocytosis 1+; Band Neutrophils 4 % (0-10); Hypochromia Slight; Lymphocytes 1 % (20-55); Metamyelocytes 1 %; Microcytosis 1+; Segmented Neutrophils 93 % (50-85); Tear Drop Cells Slight
[2021-06-05 05:34] LABS: Platelet Estimate Adequate
[2021-06-05] MEDS: FOLIC ACID 1 MG TABLET PO SCH (09:38)
[2021-06-05] MEDS: predniSONE 50 MG TABLET PO SCH (09:38)
[2021-06-05] MEDS: PALONOSETRON 0.25 MG/5 ML VIAL IV SCH (09:39)
[2021-06-05] MEDS: SULFAMETHOX/TRIMETHOPRIM 800-160 MG TABLET PO SCH (09:39)
[2021-06-05] MEDS: DEXAMETHASONE 10 MG/1 ML VIAL IV SCH (09:39)
[2021-06-05] MEDS: NON-FORMULARY MEDICATION (Emtricitabine-Tenofovir Alafen [Descovy] 200-25 mg tablet) PO SCH (09:40)
[2021-06-05] MEDS: SODIUM CHLORIDE 0.9% 1,000 ML IV SCH (11:10)
[2021-06-05] MEDS ORDERED: CYCLOPHOSPHAMIDE INJ 1,500 MG in SODIUM CHLORIDE 0.9% 250 ML IV ONE (14:30)
[2021-06-05] MEDS ORDERED: HEPARIN LOCK FLUSH 500 UNIT/5 ML SYRINGE IV ONE (16:05)
[2021-06-05 19:21] VITALS: BP 137/75
== END 2021-06-05 16:39 | disposition home or self-care (01) | DRG 976 ==
LOC: N.ADMINP 09:27 → N.TELES 11:42
PROVIDERS: ADMIT Internal Medicine Hematology & Oncology; ATTEND Internal Medicine Hematology & Oncology